=== PATIENT | male | born 1985 | race Asian ===

== ENCOUNTER 2022-06-05 11:13 | Emergency (ER) | payer MEDICAID | END 2022-06-05 12:39 | disposition home or self-care (01) | LOC: JP.ED 11:13 | DX: S80.01XA Contusion of right knee, initial encounter (principal); Z72.0 Tobacco use; W23.1XXA Caught, crushed, jammed, or pinched between stationary objects, initial encounter | CPT/HCPCS: 73562-26-RT; 73562-RT; 99283 ==